=== PATIENT | female | born 1995 | race American Indian/Alaskan Native ===

== ENCOUNTER 2020-11-01 04:04 | Emergency (ER) | payer MEDICAID ==
[2020-11-01 04:42] VITALS: BP 115/84
[2020-11-01] MEDS ORDERED: diphenhydrAMINE 25 MG CAP PO ONE (05:13)
[2020-11-01] MEDS ORDERED: predniSONE 20 MG TAB PO ONE (05:13)
[2020-11-01] MEDS ORDERED: ONDANSETRON 4 MG ODT TAB PO ONE (05:13)
[2020-11-01] MEDS ORDERED: FAMOTIDINE 20 MG TAB PO ONE (05:14)
--- NOTE | 2020-11-01 06:06 | Emergency Department Report ---
ED Allergic Reaction HPI - General Chief complaint: Allergic Reaction Stated complaint: ALLERGIC REACTION TO TYLENOL Time Seen by Provider: 11/01/20 05:29 Source: patient Mode of arrival: Ambulatory Limitations: No Limitations - History of Present Illness Initial Comments: Female took some Tylenol Cold and flu medicine around 11 PM and then shortly after began to develop a red itchy pruritic rash which is continued to progress to the arms and chest area so she decided to the emergency department for treatment she reports no lip swelling, no odynophagia, no dyspnea. Reports no chest pain or palpitations. MD Complaint: allergic reaction -: Gradual Symptoms: itching Severity: mild Treatment Prior to Arrival: none Previous Allergy History: none - Related Data Previous Rx's Medication Instructions Recorded Last Taken Type Metoclopramide [Reglan] 10 mg PO TID #30 tab 03/14/15 Unknown Rx cephALEXin [Keflex] 500 mg PO Q8HR #21 cap 03/14/15 Unknown Rx Betamethasone/Propylene Glyc 1 gm TP BID #30 oint...g. 11/01/20 Unknown Rx [Diprolene 0.05% Ointment] Desloratadine [Clarinex] 5 mg PO DAILY #7 tablet 11/01/20 Unknown Rx hydrOXYzine HCL [Atarax] 25 mg PO Q6HR PRN #20 tablet 11/01/20 Unknown Rx predniSONE [Deltasone] 50 mg PO QDAY #5 tab 11/01/20 Unknown Rx Allergies Allergy/AdvReac Type Severity Reaction Status Date / Time No Known Allergies Allergy Unverified 03/14/15 15:36 ED Review of Systems ROS: Stated complaint: ALLERGIC REACTION TO TYLENOL Other details as noted in HPI Comment: All other systems reviewed and negative ED Past Medical Hx - Past Medical History Previous Medical History?: No - Surgical History Past Surgical History?: No - Social History Smoking Status: Never Smoker Substance Use Type: Alcohol - Medications Home Medications: Home Medications Medication Instructions Recorded Confirmed Last Taken Type Metoclopramide [Reglan] 10 mg PO TID #30 tab 03/14/15 Unknown Rx cephALEXin [Keflex] 500 mg PO Q8HR #21 cap 03/14/15 Unknown Rx Betamethasone/Propylene Glyc 1 gm TP BID #30 oint...g. 11/01/20 Unknown Rx [Diprolene 0.05% Ointment] Desloratadine [Clarinex] 5 mg PO DAILY #7 tablet 11/01/20 Unknown Rx hydrOXYzine HCL [Atarax] 25 mg PO Q6HR PRN #20 tablet 11/01/20 Unknown Rx predniSONE [Deltasone] 50 mg PO QDAY #5 tab 11/01/20 Unknown Rx ED Physical Exam - General Limitations: No Limitations General appearance: alert, in no apparent distress - Head Head exam: Present: atraumatic, normocephalic - Eye Eye exam: Present: normal appearance, PERRL, EOMI Pupils: Present: normal accommodation - ENT ENT exam: Present: normal exam, normal orophraynx, mucous membranes moist, TM's normal bilaterally, other (Airway patent tongue uvula midline no stridor) - Neck Neck exam: Present: normal inspection, full ROM - Respiratory Respiratory exam: Present: normal lung sounds bilaterally. Absent: respiratory distress - Cardiovascular Cardiovascular Exam: Present: regular rate, normal rhythm. Absent: systolic murmur, diastolic murmur, rubs, gallop - GI/Abdominal GI/Abdominal exam: Present: soft, normal bowel sounds - Extremities Exam Extremities exam: Present: normal inspection - Back Exam Back exam: Present: normal inspection. Absent: CVA tenderness (R), CVA tenderness (L) - Neurological Exam Neurological exam: Present: alert, oriented X3, CN II-XII intact, normal gait - Psychiatric Psychiatric exam: Present: normal affect, normal mood - Skin Skin exam: Present: warm, dry, intact, erythema, urticaria. Absent: rash ED Course Vital Signs 11/01/20 04:10 Temperature 98.3 F Pulse Rate 91 H Respiratory 18 Rate Blood Pressure 115/84 O2 Sat by Pulse 98 Oximetry ED Medical Decision Making - Medical Decision Making This patient presents with symptoms consistent with acute hypersensitivity reaction, likely acute allergic reaction. Presentation not consistent with acute anaphylaxis (lack of pulmonary, dermatologic, cardiovascular or GI symptoms, lack of hypotension or exposure to known allergen), angioedema, serum sickness(no recent drug exposure, lack of fevers, arthralgias), ingestion of preformed toxin. No evidence of airway compromise or shock at this time. Plan to treat for allergic reaction with H2/H1 blockers, steroids. No indication for epinephrine at this time. Plan Critical care attestation.: If time is entered above; I have spent that time in minutes in the direct care of this critically ill patient, excluding procedure time. ED Disposition Clinical Impression: Allergic reaction Disposition: 01 HOME / SELF CARE / HOMELESS Is pt being admited?: No Does the pt Need Aspirin: No Condition: Stable Instructions: Allergies, Adult, Hives, Drug Rash Additional Instructions: Please take the listed medications as prescribed for at least the next 48 hours Referrals: [facility] [Provider Group] - 3-5 Days
== END 2020-11-01 07:00 | disposition home or self-care (01) ==
LOC: ED 04:04
DX: L29.9 Pruritus, unspecified (principal); T39.1X5A Adverse effect of 4-Aminophenol derivatives, initial encounter; Y92.89 Other specified places as the place of occurrence of the external cause
CPT/HCPCS: 99282; J7512; Q0162